=== PATIENT | female | born 1945 | race Caucasian/White ===

== ENCOUNTER 2016-08-11 03:17 | Emergency (ER) | payer MEDICARE, BC ==
[2008-08-19 14:57] VITALS: BP 109/77
[~2016-08-11] VITALS: Ht 170.2 cm; Wt 72.3 kg
[~2016-08-11 03:17] MED LIST: AFLEXA340 MG PO; AMIODARONE200 MG PO; ASPIRIN 32325 MG/TAB PO; ASPIRIN E.C.325 MG PO; BETAPACE 80MG80 MG PO; BYSTOLIC10 MG PO; BYSTOLIC5 MG PO; CALTRATE 600 +1 TAB PO; CARDI-OMEGA1000 MG PO; CARDIZEM CD 18180 MG PO; CLOPIDOGREL PO; CO Q-1010 MG PO; CORDARONE200 MG PO; COUMADIN PO; COUMADIN1 MG PO; COUMADIN6 MG PO; CRESTOR 10MG10 MG PO; CRESTOR20 MG PO; DOXYCYCLINE100 M2 PO; FORTAMET500 MG PO; GLUCOPHAGE1000 MG PO; GLUCOSAMINE & C1 CA1 PO; IMDUR 30MG30 MG/TAB PO; LISINOPRIL10 MG PO; LISINOPRIL5 MG PO; MACROBID 1100 MG/CAP PO; MASON NATURAL500 MG PO; METFORMIN500 MG PO; METOPROLOL SUCC25 MG PO; NIASPAN 500MG500 MG PO; NIASPAN500 MG PO; NITROSTAT0.4 MG/TAB SL; NORCO 325 MG-51 TAB PO; NORCO 325 MG-7.1 TAB PO; PLAVIX 75MG TAB75 MG PO; PREDNISONE20 MG PO; PRINIVIL10 MG PO; RANEXA 500MG T500 MG PO; SINGULAIR 110 MG/TAB PO; SINGULAIR10 MG PO; STOOL SOFTENER100 MG PO; VITAMIN C500 MG PO; VITAMIN D1000 IU PO; VITAMIN D50000 I1 PO; VITAMIN D50000 I2 PO; ZESTRIL 10MG10 MG PO; ZITHROMAX500 M2 PO; ZOCOR80 MG PO; ZOFRAN ODT4 MG PO; [UNRECOGNIZED DRUG - OTHER] PO; diabetic med
[2016-08-11 03:18] VITALS: TEMP 97.2
[2016-08-11] MEDS ORDERED: IMDUR 60MG60 MG/TAB (03:35)
[2016-08-11] MEDS ORDERED: PREDNISONE20 MG PO (03:35)
[2016-08-11] MEDS ORDERED: MONODOX100 PO (03:35)
[2016-08-11 03:53] LABS: BASO % 0.1 % (0.0-2.0); EOS % 0.4 % (0-4.0); GRAN # 4.7 (1.4-6.5); GRAN % 60.7 % (42.2-75.2); HEMATOCRIT 41.9 % (37.0-47.0); HEMOGLOBIN 14.6 g/dl (12.5-16.0); LYMPH # 2.5 (1.2-3.4); LYMPH % 32.5 % (20.0-51.0); MEAN CELL VOLUME 93 fl (80.0-100.0); MEAN CORPUSCULAR HEMOGLOBIN 32 pg (27.0-31.0); MEAN CORPUSCULAR HGB CONC 35 g/dl (33.0-37.0); MEAN PLATELET VOLUME 10.7 fl (7.4-10.4); MONO # 0.5 (0.1-0.6); MONO % 6.2 % (1.7-9.3); PLATELET COUNT 205 K/mm3 (130-400); RED BLOOD COUNT 4.52 M/mm3 (4.10-5.30); REDCELL DISTRIBUTION WIDTH-CV 12.7 % (11.5-14.5); WHITE BLOOD COUNT 7.7 K/mm3 (4.8-10.8)
[2016-08-11 04:03] LABS: ADJUSTED CALCIUM 9.7 mg/dL (8.4-10.2); ALANINE AMINOTRANSFERASE 39 U/L (9-52); ALBUMIN 3.9 gm/dL (3.5-5.0); ALKALINE PHOSPHATASE 136 U/L (50-136); ANION GAP 13 mmol/L (7-16); BILIRUBIN,TOTAL 0.7 mg/dL (0.0-1.0); BLOOD UREA NITROGEN 20 mg/dL (7-17); CALCIUM 9.6 mg/dL (8.4-10.2); CARBON DIOXIDE 21 mmol/L (22-30); CHLORIDE 104 mmol/L (98-107); CREATININE, serum 0.92 mg/dL (0.52-1.25); GLUCOSE 100 mg/dL (74-106); POTASSIUM 4.4 mmol/L (3.4-5.0); SODIUM 138 mmol/L (137-145); TOTAL PROTEIN 6.9 gm/dL (6.4-8.2)
[2016-08-11 04:12] LABS: INFLUENZA B NEGATIVE
[2016-08-11 04:14] LABS: B-TYPE NATRIURETIC PEPTIDE 665 pg/mL (0-125)
[2016-08-11 04:17] LABS: TROPONIN-I < 0.012 ng/mL (0.000-0.034)
[2016-08-11 04:41] VITALS: BP 124/80; PULSE 85
[2016-08-11] MEDS ORDERED: IPRATROPIUM BROM3 M1 IH (04:46)
[2016-08-11] MEDS ORDERED: NORCO 325 MG-51 TAB PO (04:46)
== END 2016-08-11 04:58 | disposition home or self-care (01) ==
LOC: COL.ER 03:17
PROVIDERS: Emergency Medicine
DX: J20.9 Acute bronchitis, unspecified (principal); I10 Essential (primary) hypertension; I25.10 Atherosclerotic heart disease of native coronary artery without angina pectoris

== ENCOUNTER 2016-08-27 14:47 | Emergency (ER) | payer MEDICARE, BC ==
[2008-08-19 14:57] VITALS: BP 109/77
[~2016-08-27] VITALS: Ht 170.2 cm; Wt 72.3 kg
[~2016-08-27 14:47] MED LIST changes: +IMDUR 60MG60 MG/TAB; +IPRATROPIUM BROM3 M1 IH; +MONODOX100 PO
[2016-08-27 15:00] VITALS: TEMP 98
[2016-08-27 16:54] VITALS: BP 97/60; PULSE 77
== END 2016-08-27 16:55 | disposition home or self-care (01) ==
LOC: COL.ER 14:47
DX: K59.00 Constipation, unspecified (principal); E11.9 Type 2 diabetes mellitus without complications; I25.10 Atherosclerotic heart disease of native coronary artery without angina pectoris; Z95.5 Presence of coronary angioplasty implant and graft

== ENCOUNTER 2017-07-06 07:25 | Emergency (ER) | payer MEDICARE, BC ==
[2008-08-19 14:57] VITALS: BP 109/77
[~2017-07-06] VITALS: Ht 167.6 cm; Wt 72.7 kg
[2017-07-06 07:28] VITALS: TEMP 97.5
[2017-07-06 08:23] LABS: BASO % 0.6 % (0.0-2.0); EOS % 0.8 % (0-4.0); GRAN # 2.7 (1.4-6.5); HEMOGLOBIN 13.9 g/dl (12.5-16.0); LYMPH # 1.9 (1.2-3.4); LYMPH % 38.4 % (20.0-51.0); MEAN CELL VOLUME 95 fl (80.0-100.0); MEAN CORPUSCULAR HEMOGLOBIN 32 pg (27.0-31.0); MEAN CORPUSCULAR HGB CONC 34 g/dl (33.0-37.0); MEAN PLATELET VOLUME 10.6 fl (7.4-10.4); MONO # 0.2 (0.1-0.6); MONO % 4.8 % (1.7-9.3); PLATELET COUNT 189 K/mm3 (130-400); RED BLOOD COUNT 4.32 M/mm3 (4.10-5.30); REDCELL DISTRIBUTION WIDTH-CV 12.5 % (11.5-14.5)
[2017-07-06 08:33] LABS: ALBUMIN 3.8 gm/dL (3.5-5.0); BILIRUBIN,TOTAL 0.5 mg/dL (0.0-1.0); CALCIUM 9.5 mg/dL (8.4-10.2); CREATININE, serum 0.78 mg/dL (0.52-1.25); POTASSIUM 4.2 mmol/L (3.4-5.0); TOTAL PROTEIN 6.5 gm/dL (6.4-8.2)
[2017-07-06 08:46] LABS: TROPONIN-I 0.02 ng/mL (0.000-0.034)
[2017-07-06 09:40] VITALS: BP 132/70; PULSE 65
== END 2017-07-06 09:40 | disposition home or self-care (01) ==
LOC: COL.ER 07:25
PROVIDERS: Emergency Medicine
DX: R10.30 Lower abdominal pain, unspecified (principal); E11.9 Type 2 diabetes mellitus without complications; I10 Essential (primary) hypertension; I48.91 Unspecified atrial fibrillation; I25.10 Atherosclerotic heart disease of native coronary artery without angina pectoris; K59.09 Other constipation; E78.5 Hyperlipidemia, unspecified; F17.210 Nicotine dependence, cigarettes, uncomplicated; Z86.73 Personal history of transient ischemic attack (TIA), and cerebral infarction without residual deficits; Z87.11 Personal history of peptic ulcer disease; J44.9 Chronic obstructive pulmonary disease, unspecified; Z90.710 Acquired absence of both cervix and uterus; Z90.49 Acquired absence of other specified parts of digestive tract; Z95.5 Presence of coronary angioplasty implant and graft; Z98.890 Other specified postprocedural states

== ENCOUNTER 2017-11-16 19:23 | Emergency (ER) | payer MEDICARE, BC ==
[2008-08-19 14:57] VITALS: BP 109/77
[~2017-11-16] VITALS: Ht 165.1 cm; Wt 74.5 kg
[~2017-11-16 19:23] MED LIST changes: -IMDUR 60MG60 MG/TAB; +IMDUR 60MG60 MG/TAB PO
[2017-11-16 19:29] VITALS: TEMP 97.9
[2017-11-16 19:50] LABS: BASO % 0.3 % (0.0-2.0); EOS % 0.6 % (0-4.0); GRAN # 3.1 (1.4-6.5); GRAN % 46.7 % (42.2-75.2); HEMATOCRIT 41.9 % (37.0-47.0); HEMOGLOBIN 14.5 g/dl (12.5-16.0); LYMPH # 3.1 (1.2-3.4); LYMPH % 46.6 % (20.0-51.0); MEAN CELL VOLUME 94 fl (80.0-100.0); MEAN CORPUSCULAR HEMOGLOBIN 33 pg (27.0-31.0); MEAN CORPUSCULAR HGB CONC 35 g/dl (33.0-37.0); MEAN PLATELET VOLUME 10.7 fl (7.4-10.4); MONO # 0.4 (0.1-0.6); MONO % 5.7 % (1.7-9.3); PLATELET COUNT 211 K/mm3 (130-400); RED BLOOD COUNT 4.45 M/mm3 (4.10-5.30); REDCELL DISTRIBUTION WIDTH-CV 12.4 % (11.5-14.5)
[2017-11-16] MEDS ORDERED: COREG 6.256.25 MG/TA PO (19:53)
[2017-11-16] MEDS ORDERED: MASON NATURAL2000 IU PO (19:54)
[2017-11-16] MEDS ORDERED: ASPIRIN 81M81 MG/TA2 PO (19:54)
[2017-11-16] MEDS ORDERED: XANAX 0.5MG0.5 MG PO (19:55)
[2017-11-16 19:59] LABS: ALBUMIN 3.8 gm/dL (3.5-5.0); BILIRUBIN,TOTAL 0.5 mg/dL (0.0-1.0); CALCIUM 9.6 mg/dL (8.4-10.2); CREATININE, serum 0.66 mg/dL (0.52-1.25); POTASSIUM 4.3 mmol/L (3.4-5.0); TOTAL PROTEIN 6.9 gm/dL (6.4-8.2)
[2017-11-16 20:17] LABS: TROPONIN-I 0.079 ng/mL (0.000-0.034)
[2017-11-16 21:52] VITALS: BP 148/73; PULSE 67
== END 2017-11-16 21:56 | disposition short-term general hospital (02) ==
LOC: COL.ER 19:23
PROVIDERS: Emergency Medicine
DX: I20.0 Unstable angina (principal); I10 Essential (primary) hypertension; E78.5 Hyperlipidemia, unspecified; Z95.5 Presence of coronary angioplasty implant and graft; Z98.890 Other specified postprocedural states; Z79.82 Long term (current) use of aspirin
CPT/HCPCS: J1644; J7030

== ENCOUNTER 2021-04-06 02:35 | Inpatient (IN) | payer MEDICARE, BC ==
[2021-04-06] VITALS (73 sets, daily range): BP systolic 86–189; BP diastolic 57–125; PULSE 57–137; TEMP 96.9–98.5; O2SAT 86–99
[~2021-04-06] VITALS: Ht 172.7 cm; Wt 66.2 kg
[~2021-04-06 02:35] MED LIST changes: +ASPIRIN 81M81 MG/TA2 PO; +COREG 6.256.25 MG/TA PO; +MASON NATURAL2000 IU PO; +XANAX 0.5MG0.5 MG PO
[2021-04-06 02:53] LABS: BASO % 0.4 % (0.0-2.0); EOS # 0.1 K/mm3 (0.0-0.7); EOS % 0.7 % (0-4.0); GRAN # 4.1 K/mm3 (1.4-6.5); GRAN % 58.8 % (42.2-75.2); HEMOGLOBIN 12.1 g/dl (12.5-16.0); LYMPH # 2.4 K/mm3 (1.2-3.4); LYMPH % 34.9 % (20.0-51.0); MEAN CELL VOLUME 99 fl (80.0-100.0); MEAN CORPUSCULAR HEMOGLOBIN 32 pg (27.0-31.0); MEAN CORPUSCULAR HGB CONC 33 g/dl (33.0-37.0); MEAN PLATELET VOLUME 10.3 fl (7.4-10.4); MONO # 0.4 K/mm3 (0.1-0.6); MONO % 5.1 % (1.7-9.3); PLATELET COUNT 232 K/mm3 (130-400); RED BLOOD COUNT 3.73 M/mm3 (4.10-5.30); REDCELL DISTRIBUTION WIDTH-CV 12.1 % (11.5-14.5)
[2021-04-06 03:01] LABS: PROTHROMBIN TIME 11.4 SECONDS (9.7-12.8)
[2021-04-06 03:13] LABS: ALBUMIN 3.4 gm/dL (3.4-4.8); BILIRUBIN,TOTAL 0.3 mg/dL (0.2-1.2); CALCIUM 9.7 mg/dL (8.4-10.2); CREATININE, serum 0.61 mg/dL (0.57-1.11); POTASSIUM 4.1 mmol/L (3.5-4.5); TOTAL PROTEIN 6.2 gm/dL (6.2-8.1)
[2021-04-06 03:20] LABS: TROPONIN-I 0.98 ng/mL (0.00-0.033)
[2021-04-06] MEDS ORDERED: GLUCOPHAGE1000 MG PO ×2 (03:41→08:14)
[2021-04-06] MEDS ORDERED: ISOSORBIDE MON120 MG PO (03:43)
--- NOTE | 2021-04-06 05:35 | NUR ---
0535 PATIENT ARRIVES FROM ER, SWEATY/ SHORT OF BREATH LABORED/ ANXIOUS/ CALLED HOSPITALSIT TO ROOM 3 ICU/ ORDERS OF SOLUMEDEROL/LASIX/ATIVAN/ CXR/ ABG/ LAB BLOOD CULTURES/ ALEX APPLIED. AT 0640 PATIENT BEGINS TO SLOW HEART RATE, AND LOWERING OF B/P.
--- NOTE | 2021-04-06 07:00 | NUR ---
Upon arrival heparin gtt had already been infusing prior to Heparin Xa lab draw.
[2021-04-06 07:35] LABS: COLLECTION METHOD CLEAN CATCH
[2021-04-06 08:02] LABS: MUCOUS Present /lpf; PH 5 (5-8); SQUAMOUS EPITHELIAL None Seen /hpf; URINE APPEARANCE Hazy; URINE BACTERIA Moderate /hpf; URINE BILIRUBIN Negative (NEGATIVE); URINE BLOOD Negative (NEGATIVE); URINE COLOR Yellow; URINE GLUCOSE Negative (NEGATIVE); URINE KETONE Negative (NEGATIVE); URINE LEUKOCYTE ESTERASE 1+ (NEGATIVE); URINE NITRATE Negative (NEGATIVE); URINE PROTEIN(semi-quant) Negative (NEGATIVE); URINE RBC 0-2 /hpf; URINE UROBILINOGEN Negative (NEGATIVE)
[2021-04-06] MEDS ORDERED: IMDUR 60MG60 MG/TAB PO (08:14)
[2021-04-06] MEDS ORDERED: COREG 6.256.25 MG/TA PO (08:14)
[2021-04-06] MEDS ORDERED: NORVASC 5MG5 MG/TAB PO (08:16)
[2021-04-06] MEDS ORDERED: ASPIRIN 81M81 MG/TA2 PO (08:16)
[2021-04-06] MEDS ORDERED: SINGULAIR 110 MG/TAB PO (08:16)
[2021-04-06] MEDS ORDERED: CRESTOR20 MG PO (08:17)
[2021-04-06] MEDS ORDERED: OMEGA-3 1000 MG1 CAP PO (08:17)
[2021-04-06] MEDS ORDERED: MASON NATURAL2000 IU PO (08:17)
[2021-04-06] MEDS ORDERED: THE MEDICINE S200 M2 PO (08:18)
--- NOTE | 2021-04-06 08:30 | NUR ---
0830: Timeout taken for MORRIS DCCV. GLENN Eaton, MD Jaison, Supervisor [employer] and myself all in agreement. MORRIS probe inserted and removed without difficulty. 125J delivered x1 with successful conversion to sinus rhythm/sinus bradycardia 1045: procedure end time. Pt drowsy yet awake and oriented
--- NOTE | 2021-04-06 10:29 | NUR ---
SW met with patient at bedside to discuss her discharge plan. Patient states she is and she lives alone in [place] (behind the retirement). Her primary contact is her daughter is Queta Patel at [phone]. Patient reports she sees Dr. Jatin Sullivan at [facility] as her PCP and she receives her prescriptions from [facility] in [place] with no difficulty. Patient has no 02 needs. Patient functions independently with her ADLs and has no DME's. Patient further reports that she has an MPOA and all three of her children are listed as agents. She states it is on file at [facility]. SW will continue to follow for d/c needs.
[2021-04-06 10:36] LABS: CHOLESTEROL RISK RATIO 3.8; MAGNESIUM 1.7 mg/dL (1.6-2.6)
[2021-04-06 10:47] LABS: TROPONIN-I 6 HR POST INITIAL 1.103 ng/mL (0.00-0.033)
--- NOTE | 2021-04-06 12:27 | NUR ---
SEE MERGE FOR MEDICATION ADMINISTRATION TIMES/DOSAGES AND INTRA/POST SEDATION ASSESSMENT.
--- NOTE | 2021-04-06 15:10 | NUR ---
2mL slowly removed from TR-Band - a small amount of blood oozed out of sheath insertion site - 2mL of air given back and observed for 5 min. No further drainage occured. Education provided to pt and daughter who is bedide about TRBand and Heparin gtt
--- NOTE | 2021-04-06 19:30 | NUR ---
PATIENT ADIMENT ABOUT BEING UP ON COMMODE CHAIR/ GIVEN VERB AL WARNING ABOUT STATE OF HEALTH/ PATIENT UNDERSTANDING HOWEVER STILL NEEDED TO BE UP/ PATIENT'S PULSE, B/P, ELEVATED. SATS FALLEN INSPIRATORY EXPORATORY WHEESES CAN BE HEARD EASILY/ PATIENT BACK IN BED/ BREATHING TX GIVEN PULSE AND B/P ARE STILL ELEVATED SOME 90 MINUTES LATER/ SATS AND RESPIRATIONS RECOVERYING
[2021-04-07] VITALS (8 sets, daily range): BP systolic 125–153; BP diastolic 56–95; PULSE 69–83; TEMP 97.3–98
[2021-04-07 04:38] LABS: BASO % 0.1 % (0.0-2.0); GRAN # 9.6 K/mm3 (1.4-6.5); GRAN % 87.9 % (42.2-75.2); HEMATOCRIT 37.3 % (37.0-47.0); HEMOGLOBIN 12.5 g/dl (12.5-16.0); LYMPH % 8.9 % (20.0-51.0); MEAN CELL VOLUME 97 fl (80.0-100.0); MEAN CORPUSCULAR HEMOGLOBIN 33 pg (27.0-31.0); MEAN CORPUSCULAR HGB CONC 34 g/dl (33.0-37.0); MEAN PLATELET VOLUME 10.8 fl (7.4-10.4); MONO # 0.3 K/mm3 (0.1-0.6); MONO % 2.7 % (1.7-9.3); PLATELET COUNT 242 K/mm3 (130-400); RED BLOOD COUNT 3.84 M/mm3 (4.10-5.30); REDCELL DISTRIBUTION WIDTH-CV 12.4 % (11.5-14.5)
[2021-04-07 04:58] LABS: CALCIUM 9.1 mg/dL (8.4-10.2); CREATININE, serum 0.58 mg/dL (0.57-1.11)
--- NOTE | 2021-04-07 05:53 | NUR ---
[id number] TRANSPORTED TO MEDICAL ROOM 318/ NURSE SWAPNA WILL ACCEPT CARE, NURSES REPORT GIVEN
--- NOTE | 2021-04-07 06:30 | NUR ---
PT ARRIVES TO MEDICAL FLOOR ROOM 318 BY ICU STAFF AND UNDERCUTTER AT 0600 VIA BED AND TRANSPORTED BY SCOOTING. PT VERY DYSPNEIC ON AMBULATION. PT A/OX4, 02 3L NC, PT DENIES PAIN,N,V,D. VSS. HEP GTT INFUSING AT 1050U/HR, (NEXT HEPXA 04/08/21 0500 INPUT PT HAS MET GOAL TWICE WHILE IN ICU CARE), N/S INFUSING Y SITE AT 30CC/HR TO RIGHT UPPER PICC. PICC C&P. ASSESMENT COMPLETE. MED REC COMPLETE. POC DISCUSSED WITH PT. PT VERBALIZES UNDERSTANDING. PT ORIENTED TO ROOM, HOSPITAL POLICY TO INCLUDE VISITOR POLICY. ALL QUESTIONS/CONCERNS ANSWERED. ALL NEEDS MET AT THIS TIME. PT EXPRESSES NO ADDITIONAL NEEDS AT THIS TIME. CALL LIGHT WITHIN REACH.
--- NOTE | 2021-04-07 07:19 | NUR ---
RECEIVED REPORT FROM ANIL ANDERS. PT AWAKE/ALERT WATCHING TV. DENIES PAIN. NO NEEDS AT THIS TIME. CALL KAY IN REACH
--- NOTE | 2021-04-07 11:58 | NUR ---
PT ALEX D/C'D. PT VOIDED IMMEDIATELY AFTER
--- NOTE | 2021-04-07 17:46 | NUR ---
PT HAD UNEVENTFUL SHIFT. PLAN FOR HEPARIN DRIP TO BE CHANGED TO ELIQUIS. WAITING FOR ORDERS. DENIES PAIN. NO NEEDS AT THIS TIME. CALL KAY IN REACH
--- NOTE | 2021-04-07 18:31 | NUR ---
HEPARIN DRIP D/C'D PER ORDER
[2021-04-08 02:28] VITALS: BP 136/64; PULSE 62; TEMP 97.2
--- NOTE | 2021-04-08 06:20 | NUR ---
PT HAD UNEVENTFUL NIGHT. 02 3L NC. VSS. PT DENIES CHEST PAIN,N,V,D. PT STATES SHE FEELS MUCH BETTER AND IS ABLE TO AMBULATE SBA WITH NO 02 DESATS. PT REMAINS IN NORMAL SINUS RYTHM. PT REMAINS WITH A MILD PRODUCTIVE COUGH. ALL NEEDS MET THIS NIGHT. CALL LIGHT WITHIN REACH.
[2021-04-08 06:37] LABS: GRAN # 6.5 K/mm3 (1.4-6.5); GRAN % 85.2 % (42.2-75.2); HEMOGLOBIN 11.5 g/dl (12.5-16.0); LYMPH # 0.8 K/mm3 (1.2-3.4); LYMPH % 10.5 % (20.0-51.0); MEAN CELL VOLUME 101 fl (80.0-100.0); MEAN CORPUSCULAR HEMOGLOBIN 33 pg (27.0-31.0); MEAN CORPUSCULAR HGB CONC 32 g/dl (33.0-37.0); MEAN PLATELET VOLUME 11.4 fl (7.4-10.4); MONO # 0.3 K/mm3 (0.1-0.6); MONO % 3.9 % (1.7-9.3); PLATELET COUNT 218 K/mm3 (130-400); RED BLOOD COUNT 3.53 M/mm3 (4.10-5.30); REDCELL DISTRIBUTION WIDTH-CV 12.7 % (11.5-14.5)
[2021-04-08 06:42] LABS: HEMATOCRIT 35.6 % (37.0-47.0)
[2021-04-08 06:54] LABS: ALBUMIN 3.1 gm/dL (3.4-4.8); CALCIUM 9.4 mg/dL (8.4-10.2); CREATININE, serum 0.56 mg/dL (0.57-1.11); PHOSPHOROUS 2.6 mg/dL (2.3-4.7); POTASSIUM 4.3 mmol/L (3.5-4.5)
--- NOTE | 2021-04-08 06:56 | NUR ---
REPORT RECEIVED FROM ANIL ANDERS. PT ASLEEP IN BED. BREATHING REG/UNLABORED. CALL KAY IN REACH
[2021-04-08 07:45] VITALS: BP 149/75; PULSE 65; TEMP 97.7
[2021-04-08] MEDS ORDERED: CORDARONE200 MG/TAB PO (10:11)
[2021-04-08] MEDS ORDERED: ELIQUIS 5MG PO (10:11)
[2021-04-08] MEDS ORDERED: ZESTRIL 5MG5 MG PO (10:13)
[2021-04-08] MEDS ORDERED: PREDNISONE10 MG PO (10:14)
[2021-04-08] MEDS ORDERED: NORVASC 5MG5 MG/TAB PO (10:20)
[2021-04-08] MEDS ORDERED: LASIX 40MG TABL40 MG PO (10:26)
--- NOTE | 2021-04-08 12:08 | NUR ---
DISCHARGE INSTRUCTIONS REVIEWED WITH PT. QUESTIONS INVITED AND ANSWERED. PICC LINE AND TELE REMOVED.
[2021-04-10 09:01] LABS: ARTERIAL BLD GAS O2 SATURATION 93.1 % (92-100); ARTERIAL BLD GAS TCO2 CT 18.6; ARTERIAL BLOOD GAS BASE EXCESS -10.6 (-2-2); ARTERIAL BLOOD GAS HCO3 17.2 meq/L (22-26); ARTERIAL BLOOD GAS PCO2 45.1 mmHg (35-45); ARTERIAL BLOOD GAS PO2 80.7 mmHg (80-100)
[2021-04-10 09:04] LABS: ARTERIAL BLOOD GAS pH 7.31 (7.35-7.45)
[2021-04-10 09:05] LABS: ARTERIAL BLD GAS TCO2 CT 19.9; ARTERIAL BLOOD GAS BASE EXCESS -6.9 (-2-2); ARTERIAL BLOOD GAS HCO3 18.7 meq/L (22-26); ARTERIAL BLOOD GAS PCO2 37.8 mmHg (35-45); ARTERIAL BLOOD GAS PO2 71.8 mmHg (80-100)
== END 2021-04-08 12:35 | disposition home or self-care (01) | DRG 280 ==
LOC: COL.ER 02:35 → ICU 05:05 → MEDICAL 04-07 05:51
PROVIDERS: Emergency Medicine; Nurse Practitioner Family; Student in an Organized Health Care Education/Training Program; ADMIT Internal Medicine
PROC: 4A023N7 Measurement of Cardiac Sampling and Pressure, Left Heart, Percutaneous Approach (ICD-10-PCS; principal; 2021-04-06)
PROC: B2111ZZ Fluoroscopy of Multiple Coronary Arteries using Low Osmolar Contrast (ICD-10-PCS; 2021-04-06)
PROC: 5A2204Z Restoration of Cardiac Rhythm, Single (ICD-10-PCS; 2021-04-06)
PROC: 05HY33Z Insertion of Infusion Device into Upper Vein, Percutaneous Approach (ICD-10-PCS; 2021-04-06)
PROC: 5A09357 Assistance with Respiratory Ventilation, Less than 24 Consecutive Hours, Continuous Positive Airway Pressure (ICD-10-PCS; 2021-04-06)
DX: I21.4 Non-ST elevation (NSTEMI) myocardial infarction (principal); J96.01 Acute respiratory failure with hypoxia; J18.9 Pneumonia, unspecified organism; I48.92 Unspecified atrial flutter; E87.2 Acidosis; I50.20 Unspecified systolic (congestive) heart failure; I25.10 Atherosclerotic heart disease of native coronary artery without angina pectoris; Z86.73 Personal history of transient ischemic attack (TIA), and cerebral infarction without residual deficits; Z95.5 Presence of coronary angioplasty implant and graft; Z95.1 Presence of aortocoronary bypass graft; J45.909 Unspecified asthma, uncomplicated; E78.5 Hyperlipidemia, unspecified; Z90.49 Acquired absence of other specified parts of digestive tract; Z90.710 Acquired absence of both cervix and uterus; Z90.721 Acquired absence of ovaries, unilateral; Z79.84 Long term (current) use of oral hypoglycemic drugs; Z79.82 Long term (current) use of aspirin; J44.9 Chronic obstructive pulmonary disease, unspecified; D64.9 Anemia, unspecified; Z66 Do not resuscitate; E11.51 Type 2 diabetes mellitus with diabetic peripheral angiopathy without gangrene; I48.0 Paroxysmal atrial fibrillation; F17.210 Nicotine dependence, cigarettes, uncomplicated; I11.0 Hypertensive heart disease with heart failure
CPT/HCPCS: 99223-AI; 99233-AI; 99239; C1751; C1769; C1892; J0282; J0696; J1644; J1940; J2060; J2250; J2543; J2920; J2930; J3010; J3370; J7030; J7050; J7060; Q9967

== ENCOUNTER 2021-04-08 23:30 | Emergency (ER) | payer MEDICARE, BC ==
[~2021-04-08] VITALS: Ht 170.2 cm; Wt 65.5 kg
[~2021-04-08 23:30] MED LIST changes: +CORDARONE200 MG/TAB PO; +ELIQUIS 5MG PO; +ISOSORBIDE MON120 MG PO; +LASIX 40MG TABL40 MG PO; +NORVASC 5MG5 MG/TAB PO; +OMEGA-3 1000 MG1 CAP PO; +PREDNISONE10 MG PO; +THE MEDICINE S200 M2 PO; +ZESTRIL 5MG5 MG PO
[2021-04-09 00:17] VITALS: BP 117/86; PULSE 57; TEMP 98.3
== END 2021-04-09 00:17 | disposition home or self-care (01) ==
LOC: COL.ER 23:30
DX: L76.22 Postprocedural hemorrhage of skin and subcutaneous tissue following other procedure (principal); I25.10 Atherosclerotic heart disease of native coronary artery without angina pectoris; Z86.73 Personal history of transient ischemic attack (TIA), and cerebral infarction without residual deficits; Z79.01 Long term (current) use of anticoagulants; Z79.82 Long term (current) use of aspirin

== ENCOUNTER 2021-12-19 13:51 | Observation (INO) | payer MEDICARE, BC ==
[~2021-12-19] VITALS: Ht 167.7 cm; Wt 62.3 kg
[2021-12-19 14:22] LABS: PROTHROMBIN TIME 11.8 SECONDS (9.7-12.8)
[2021-12-19 14:25] LABS: BASO % 0.4 % (0.0-2.0); EOS % 0.4 % (0.0-4.0); GRAN # 3.1 K/mm3 (1.4-6.5); GRAN % 56.5 % (42.2-75.2); HEMOGLOBIN 11.2 g/dl (12.5-16.0); LYMPH % 36.7 % (20.0-51.0); MEAN CELL VOLUME 95 fl (80.0-100.0); MEAN CORPUSCULAR HEMOGLOBIN 32 pg (27-31); MEAN CORPUSCULAR HGB CONC 34 g/dl (33.0-37.0); MEAN PLATELET VOLUME 10.8 fl (7.4-10.4); MONO # 0.3 K/mm3 (0.1-0.6); MONO % 5.8 % (1.7-9.3); PARTIAL THROMBOPLASTIN TIME 30.9 SECONDS (26.0-37.0); PLATELET COUNT 219 K/mm3 (130-400); RED BLOOD COUNT 3.51 M/mm3 (4.10-5.30); REDCELL DISTRIBUTION WIDTH-CV 12.7 % (11.5-14.5)
[2021-12-19 14:28] LABS: HEMATOCRIT 33.3 % (37.0-47.0)
[2021-12-19 14:30] LABS: ALBUMIN 3.3 gm/dL (3.4-4.8); ALKALINE PHOSPHATASE 60 U/L (40-150); ANION GAP 13 mmol/L (7-16); AST,SGOT 7 U/L (5-34); BILIRUBIN,TOTAL 0.3 mg/dL (0.2-1.2); BLOOD UREA NITROGEN 11 mg/dL (10-20); CARBON DIOXIDE 19 mmol/L (23-31); CHLORIDE 110 mmol/L (98-107); GLUCOSE 82 mg/dL (70-99); LIPASE 31 U/L (8-78); POTASSIUM 3.8 mmol/L (3.5-4.5); SODIUM 142 mmol/L (136-145); TOTAL PROTEIN 5.6 gm/dL (6.2-8.1)
[2021-12-19 14:32] LABS: ALANINE AMINOTRANSFERASE < 6 U/L (0-55)
[2021-12-19 14:38] LABS: TROPONIN-I < 0.010 ng/mL (0.00-0.033)
[2021-12-19 17:30] VITALS: BP 138/61; PULSE 72; TEMP 97.9
[2021-12-19] MEDS ORDERED: MAGNESIUM ELEME30 MG PO (18:24)
--- NOTE | 2021-12-19 19:02 | NUR ---
Patient is having dinner right now, feeling cold, increased temp in room and warm blanket provided. 1 dose of potassium given. Denies pain at thi time. Report given to night RN.
[2021-12-19 21:03] VITALS: BP 127/45; PULSE 80; TEMP 98.2
[2021-12-20] VITALS (11 sets, daily range): BP systolic 112–154; BP diastolic 54–90; PULSE 60–89; TEMP 97.6–98.1
[2021-12-20 07:43] LABS: BASO % 0.4 % (0.0-2.0); EOS % 0.7 % (0.0-4.0); GRAN # 2.9 K/mm3 (1.4-6.5); GRAN % 53.7 % (42.2-75.2); HEMOGLOBIN 12.6 g/dl (12.5-16.0); LYMPH # 2.1 K/mm3 (1.2-3.4); LYMPH % 39.3 % (20.0-51.0); MEAN CELL VOLUME 93 fl (80.0-100.0); MEAN CORPUSCULAR HEMOGLOBIN 32 pg (27-31); MEAN CORPUSCULAR HGB CONC 34 g/dl (33.0-37.0); MEAN PLATELET VOLUME 10.8 fl (7.4-10.4); MONO # 0.3 K/mm3 (0.1-0.6); MONO % 5.7 % (1.7-9.3); PLATELET COUNT 231 K/mm3 (130-400); RED BLOOD COUNT 3.96 M/mm3 (4.10-5.30); REDCELL DISTRIBUTION WIDTH-CV 12.7 % (11.5-14.5)
[2021-12-20 08:09] LABS: ALBUMIN 3.5 gm/dL (3.4-4.8); CALCIUM 9.5 mg/dL (8.4-10.2); CREATININE, serum 0.62 mg/dL (0.57-1.11); MAGNESIUM 1.5 mg/dL (1.6-2.6); POTASSIUM 4.4 mmol/L (3.5-4.5)
--- NOTE | 2021-12-20 09:44 | NUR ---
Initial visit; Patient thanked Financial Institution Treasurer for looking in on her and offering encouragement and God's blessings. Financial Institution Treasurer will keep Renita in her prayers.
[2021-12-20] MEDS ORDERED: ZESTRIL 5MG5 MG PO (10:04)
--- NOTE | 2021-12-20 10:25 | NUR ---
PT RESTING IN BED. MORNING MEDICATIONS GIVEN. SHIFT ASSESSMENT COMPLETED. PT DENIES ANY PAIN OR NEEDS THIS AM. EAGER FOR D/C. WILL CONTINUE TO MONITOR.
--- NOTE | 2021-12-20 10:25 | NUR ---
Follow-up visit; Patient had nurse call Change Consultant for a follow-up visit; Honey wanted to read a letter to Change Consultant from he Grand-daughter and talk about her family and friends who have and new friends she has made where she lives. Change Consultant listened and assured Honey she would continue to visit so she could keep Change Consultant posted on her progress.
--- NOTE | 2021-12-20 13:33 | NUR ---
SW met with the patient to discuss discharge plan. The patient lives alone in [place], behind the long term. She states that her June 07. She reports independence with ADLs and does not have any DME. The patient's PCP is Dr. Jatin Sullivan and she receives her medications from [facility]. The patient does not have a DPOA-HC in EMR, but she states that she does have one completed and that it designates her three children. She states that she has three children in all: Queta ([place], ph#[phone]), Obi Argueta ([place]), and Hank Argueta ([place]). The patient plans to return home upon discharge. PT is recommending home. No additional needs at this time. *Discharge plan: home*
[2021-12-21 00:18] VITALS: BP 136/61; PULSE 62; TEMP 98.1
[2021-12-21 03:47] VITALS: BP 124/52; PULSE 77; TEMP 97.6
--- NOTE | 2021-12-21 05:15 | NUR ---
PT UPSET AT THE BEGINNING OF SHIFT BECAUSE SHE FELT THE DRChente ONLY TALKED TO HER DAUGHTER ABOUT HER HEART CONDITION. COREMAKER FLOOR CALLED AND SPOKE DIRECTLY WITH PT. PT SEEMED MUCH BETTER, HAPPIER AFTER PHONE CALL. PT STATED SHE WANTED TO GO HOME FOR ABOUT A WEEK. THEN SEE HER OWN COREMAKER FLOOR FOR TREATMENT. CALL LIGHT WITHIN REACH.
[2021-12-21 06:52] LABS: BASO % 0.4 % (0.0-2.0); EOS % 0.6 % (0.0-4.0); GRAN # 2.4 K/mm3 (1.4-6.5); GRAN % 51.4 % (42.2-75.2); HEMATOCRIT 38.3 % (37.0-47.0); HEMOGLOBIN 12.9 g/dl (12.5-16.0); LYMPH % 42.5 % (20.0-51.0); MEAN CELL VOLUME 95 fl (80.0-100.0); MEAN CORPUSCULAR HEMOGLOBIN 32 pg (27-31); MEAN CORPUSCULAR HGB CONC 34 g/dl (33.0-37.0); MEAN PLATELET VOLUME 10.8 fl (7.4-10.4); MONO # 0.2 K/mm3 (0.1-0.6); MONO % 4.9 % (1.7-9.3); PLATELET COUNT 223 K/mm3 (130-400); RED BLOOD COUNT 4.02 M/mm3 (4.10-5.30); REDCELL DISTRIBUTION WIDTH-CV 12.5 % (11.5-14.5)
[2021-12-21 07:10] LABS: ALBUMIN 3.6 gm/dL (3.4-4.8); CALCIUM 9.7 mg/dL (8.4-10.2); CREATININE, serum 0.62 mg/dL (0.57-1.11); MAGNESIUM 1.7 mg/dL (1.6-2.6); PHOSPHOROUS 3.8 mg/dL (2.3-4.7); POTASSIUM 4.1 mmol/L (3.5-4.5)
[2021-12-21 07:59] VITALS: BP 127/53; PULSE 66; TEMP 97.8
--- NOTE | 2021-12-21 09:36 | NUR ---
PT SITTING UP IN RECLINER. MORNING MEDICATIONS GIVEN. SHIFT ASSESSMENT COMPLETED. UPDATED PT ON POC, PT STATING SHE WOULD LIKE TO GO HOME FOR A FEW DAYS BEFORE FOLLOWING UP WITH HER NORMAL OPERATING ROOM AIDE. WILL CONTINUE TO MONITOR.
--- NOTE | 2021-12-21 09:46 | NUR ---
Follow-up visit; Patient thanked Blogs Manager for looking in on her again this morning and introduced Blogs Manager to her sister. Honey says she is probably going to be transferred to [place] and thanked Blogs Manager for keeping her in her prayers.
--- NOTE | 2021-12-21 13:13 | NUR ---
IV D/C. TELE D/C. DISCHARGE INSTRUCTIONS GIVEN, SISTER AT BEDSIDE. ALL QUESTIONS ANSWERED. PT ESCORTED DOWN TO VEHICLE WITH PERSONAL BELONGINGS. WILL D/C FROM SYSTEM.
== END 2021-12-21 13:17 | disposition home or self-care (01) ==
LOC: COL.ER 13:51 → MEDICAL 15:08
PROVIDERS: Emergency Medicine; ADMIT Internal Medicine
DX: I25.9 Chronic ischemic heart disease, unspecified (principal); I10 Essential (primary) hypertension; R42 Dizziness and giddiness; E11.9 Type 2 diabetes mellitus without complications; E83.42 Hypomagnesemia; F17.210 Nicotine dependence, cigarettes, uncomplicated; Z79.84 Long term (current) use of oral hypoglycemic drugs; Z79.82 Long term (current) use of aspirin; Z79.899 Other long term (current) drug therapy; Z95.5 Presence of coronary angioplasty implant and graft; Z95.1 Presence of aortocoronary bypass graft
CPT/HCPCS: 99233-AI; A9500; G0378; J2785; J3475

== ENCOUNTER 2024-01-08 13:31 | Emergency (ER) | payer MEDICARE, BC ==
[~2024-01-08] VITALS: Ht 165.1 cm; Wt 72.3 kg
[~2024-01-08 13:31] MED LIST changes: +ASPI325T6 PO; +COREG 3.123.125 MG/T PO; +CRESTOR40 MG PO; +MAGNESIUM ELEME30 MG PO; +NORVASC2.5 MG PO; +PACERONE200 MG PO
[2024-01-08 13:53] VITALS: TEMP 98.3
[2024-01-08 14:29] LABS: BASO % 0.5 % (0.0-2.0); EOS % 0.7 % (0.0-4.0); GRAN # 2.6 K/mm3 (1.4-6.5); GRAN % 63.2 % (42.2-75.2); HEMOGLOBIN 10.1 g/dl (12.5-16.0); LYMPH # 1.1 K/mm3 (1.2-3.4); LYMPH % 27.8 % (20.0-51.0); MEAN CELL VOLUME 88 fl (80.0-100.0); MEAN CORPUSCULAR HEMOGLOBIN 26 pg (27-31); MEAN CORPUSCULAR HGB CONC 30 g/dl (33.0-37.0); MEAN PLATELET VOLUME 9.9 fl (7.4-10.4); MONO # 0.3 K/mm3 (0.1-0.6); MONO % 7.6 % (1.7-9.3); PLATELET COUNT 234 K/mm3 (130-400); RED BLOOD COUNT 3.83 M/mm3 (4.10-5.30); REDCELL DISTRIBUTION WIDTH-CV 14.7 % (11.5-14.5)
[2024-01-08 14:35] LABS: HEMATOCRIT 33.6 % (37.0-47.0)
[2024-01-08 14:47] LABS: ALBUMIN 3.4 g/dL (3.4-4.8); BILIRUBIN,TOTAL 0.4 mg/dL (0.2-1.2); CALCIUM 9.3 mg/dL (8.4-10.2); CREATININE, serum 1.24 mg/dL (0.57-1.11); POTASSIUM 3.8 mEq/L (3.5-4.5); TOTAL PROTEIN 6.8 g/dl (6.2-8.1)
[2024-01-08 15:14] LABS: COLLECTION METHOD CLEAN CATCH
[2024-01-08 15:42] LABS: PH 6.5 (5.0-8.5); URINE APPEARANCE CLEAR (CLEAR/HAZY); URINE BLOOD NEGATIVE (NEGATIVE); URINE COLOR YELLOW (YELLOW); URINE GLUCOSE NEGATIVE (NEGATIVE); URINE KETONE NEGATIVE (NEGATIVE); URINE NITRATE NEGATIVE (NEGATIVE); URINE PROTEIN(semi-quant) NEGATIVE (NEGATIVE)
[2024-01-08 16:22] VITALS: BP 115/49; PULSE 80
== END 2024-01-08 16:22 | disposition home or self-care (01) ==
LOC: COL.ER 13:31
PROVIDERS: Physician Assistant
DX: G30.9 Alzheimer's disease, unspecified (principal); F02.80 Dementia in other diseases classified elsewhere, unspecified severity, without behavioral disturbance, psychotic disturbance, mood disturbance, and anxiety

== ENCOUNTER 2024-01-22 21:30 | Emergency (ER) | payer MEDICARE, BC ==
[~2024-01-22] VITALS: Ht 170.2 cm; Wt 72.7 kg
[2024-01-23 00:40] LABS: BASO % 0.6 % (0.0-2.0); EOS % 0.6 % (0.0-4.0); GRAN # 3.1 K/mm3 (1.4-6.5); GRAN % 61.1 % (42.2-75.2); HEMOGLOBIN 10.3 g/dl (12.5-16.0); LYMPH # 1.5 K/mm3 (1.2-3.4); LYMPH % 30.1 % (20.0-51.0); MEAN CELL VOLUME 87 fl (80.0-100.0); MEAN CORPUSCULAR HEMOGLOBIN 27 pg (27-31); MEAN CORPUSCULAR HGB CONC 31 g/dl (33.0-37.0); MEAN PLATELET VOLUME 9.8 fl (7.4-10.4); MONO # 0.4 K/mm3 (0.1-0.6); MONO % 7.4 % (1.7-9.3); PLATELET COUNT 188 K/mm3 (130-400); RED BLOOD COUNT 3.77 M/mm3 (4.10-5.30); REDCELL DISTRIBUTION WIDTH-CV 16.4 % (11.5-14.5)
[2024-01-23 00:42] LABS: HEMATOCRIT 32.8 % (37.0-47.0)
[2024-01-23 00:51] LABS: COLLECTION METHOD CATHETER
[2024-01-23 00:55] LABS: ALBUMIN 3.3 g/dL (3.4-4.8); BILIRUBIN,TOTAL 0.4 mg/dL (0.2-1.2); CALCIUM 9.3 mg/dL (8.4-10.2); CREATININE, serum 1.11 mg/dL (0.57-1.11); POTASSIUM 3.7 mEq/L (3.5-4.5); TOTAL PROTEIN 6.3 g/dl (6.2-8.1)
[2024-01-23 00:57] LABS: PH 6.5 (5.0-8.5); URINE APPEARANCE CLEAR (CLEAR/HAZY); URINE BLOOD NEGATIVE (NEGATIVE); URINE COLOR YELLOW (YELLOW); URINE GLUCOSE NEGATIVE (NEGATIVE); URINE KETONE NEGATIVE (NEGATIVE); URINE NITRATE NEGATIVE (NEGATIVE); URINE PROTEIN(semi-quant) NEGATIVE (NEGATIVE)
[2024-01-23] MEDS ORDERED: MACROBID 1100 MG/CAP PO (01:58)
[2024-01-23 02:46] VITALS: BP 131/73; PULSE 78
[2024-01-30] MEDS ORDERED: TYLENOL 325MG325 MG PO (11:53)
[2024-01-30] MEDS ORDERED: TYLENOL 500MG500 MG PO (11:54)
== END 2024-01-23 03:20 | disposition home or self-care (01) ==
LOC: COL.ER 21:30
PROVIDERS: Emergency Medicine
DX: R41.82 Altered mental status, unspecified (principal); N39.0 Urinary tract infection, site not specified; E11.9 Type 2 diabetes mellitus without complications

== ENCOUNTER 2024-01-30 09:51 | Day surgery (SDC) | payer MEDICARE, BC ==
[~2024-01-30] VITALS: Ht 165.1 cm; Wt 72.4 kg
[~2024-01-30 09:51] MED LIST changes: +LR 1,000 ML IV SCH; +Ondansetron 4 MG/2 ML VIAL IV PRN
--- NOTE | 2024-01-30 10:28 | NUR ---
Initial visit; Patient requested Concrete Laborer visit and prayer. Concrete Laborer and patient have been acquainted for many years. Patient suffering from dementia though still has sporadic memories of people, places and times. Concrete Laborer offered prayer for a successful test and rapid and thorough recovery. Honey was happy that Concrete Laborer came to see her.
[2024-01-30] MEDS ORDERED: ABILIFY2 MG PO (11:52)
[2024-01-30] MEDS ORDERED: TYLENOL 500MG500 MG PO (11:53)
[2024-01-30] MEDS ORDERED: TYLENOL 325MG325 MG PO (11:54)
[2024-01-30 11:55] VITALS: BP 116/61; PULSE 76; TEMP 97.1
[2024-01-30] MEDS ORDERED: PROAIR HFA0.09 MG/AC IH (11:55)
[2024-01-30] MEDS ORDERED: NATURE'S BLE1000 MCG PO (11:56)
[2024-01-30] MEDS ORDERED: DULCOLAX TAB5 MG PO (11:57)
[2024-01-30] MEDS ORDERED: GOOD NEIGHBOR5.8 MG MM (11:58)
[2024-01-30] MEDS ORDERED: B-12 500 MCG PO (11:59)
[2024-01-30] MEDS ORDERED: TUSSIN DM CLEA120 ML PO (12:03)
[2024-01-30] MEDS ORDERED: LASIX 40MG TABL40 MG PO (12:04)
[2024-01-30] MEDS ORDERED: ATIVAN 0.50.5 MG/TAB PO (12:05)
[2024-01-30] MEDS ORDERED: MIRALAX PA17 GM/Dose PO (12:06)
[2024-01-30] MEDS ORDERED: MELATIN 3 MG-11 TAB PO (12:06)
[2024-01-30] MEDS ORDERED: PEPCID 20MG TAB20 MG PO (12:07)
[2024-01-30] MEDS ORDERED: K-TAB10 PO (12:08)
[2024-01-30] MEDS ORDERED: CRESTOR40 MG PO (12:09)
[2024-01-30] MEDS ORDERED: ZOLOFT 100MG100 MG PO (12:09)
[2024-01-30 12:10] VITALS: BP 104/61; PULSE 76
[2024-01-30] MEDS ORDERED: SYSTANE 0.4%-0.1 SOL OU (12:10)
[2024-01-30] MEDS ORDERED: VICTORS1 LO2 TOP (12:11)
[2024-01-30 12:25] VITALS: BP 126/68; PULSE 76
--- NOTE | 2024-01-30 12:40 | NUR ---
1155 RETURNS TO ROOM 2 PER CART. PATIENT WILL REMAIN ON CART SECONDARY TO DECREASED MOBILITY. AWAKE, ALERT, COOPERATIVE. RESP UNLABORED. DENIES NAUSEA, ABD/CHEST PAIN OR DYSPHAGIA. VITAL SIGNS OBTAINED. HOB ELEVATED 50 DEGREES. CALL LIGHT AT SIDE. DAUGHTER HERE 1210 AWAKE, ALERT. CONVERSES APPROPRIATELY. HOB ELEVATED 75 DEGREES. TOLERATES PO WATER AND ICECREAM WITHOUT NAUSEA. SWALLOWS WITHOUT DIFFICULTY 1214 DR COLLINS HERE TO VISIT WITH PATIENT 1216 DISCHARGE INSTRUCTIONS REVIEWED. PATIENT AND DAUGHTER VERBALIZE UNDERSTANDING. COPY PROVIDED IN DISCHARGE FOLDER 1230 TRANSFERS FROM CART TO BEDSIDE COMMODE WITH 2 ASSIST. PATIENT DRESSES WITH ASSIST FROM DAUGHTER AND GRANDDAUGHTER.
== END 2024-01-30 12:40 | disposition home or self-care (01) ==
LOC: SDCO 09:51
DX: D12.3 Benign neoplasm of transverse colon (principal); K21.00 Gastro-esophageal reflux disease with esophagitis, without bleeding; K29.30 Chronic superficial gastritis without bleeding; K57.30 Diverticulosis of large intestine without perforation or abscess without bleeding; K59.04 Chronic idiopathic constipation; K62.5 Hemorrhage of anus and rectum; D50.9 Iron deficiency anemia, unspecified; E11.22 Type 2 diabetes mellitus with diabetic chronic kidney disease; N18.32 Chronic kidney disease, stage 3b; Z95.5 Presence of coronary angioplasty implant and graft; Z87.19 Personal history of other diseases of the digestive system; Z86.73 Personal history of transient ischemic attack (TIA), and cerebral infarction without residual deficits; Z79.84 Long term (current) use of oral hypoglycemic drugs; Z79.899 Other long term (current) drug therapy; Z95.1 Presence of aortocoronary bypass graft; Z79.82 Long term (current) use of aspirin; Z87.891 Personal history of nicotine dependence
CPT/HCPCS: J2704; J7120

== ENCOUNTER 2024-02-03 09:33 | Emergency (ER) | payer MEDICARE, BC ==
[~2024-02-03] VITALS: Ht 167.6 cm; Wt 71.5 kg
[~2024-02-03 09:33] MED LIST changes: +ABILIFY2 MG PO; +ATIVAN 0.50.5 MG/TAB PO; +B-12 500 MCG PO; +DULCOLAX TAB5 MG PO; +GOOD NEIGHBOR5.8 MG MM; +K-TAB10 PO; -LR 1,000 ML IV SCH; +MELATIN 3 MG-11 TAB PO; +MIRALAX PA17 GM/Dose PO; +NATURE'S BLE1000 MCG PO; -Ondansetron 4 MG/2 ML VIAL IV PRN; +PEPCID 20MG TAB20 MG PO; +PROAIR HFA0.09 MG/AC IH; +SYSTANE 0.4%-0.1 SOL OU; +TUSSIN DM CLEA120 ML PO; +TYLENOL 325MG325 MG PO; +TYLENOL 500MG500 MG PO; +VICTORS1 LO2 TOP; +ZOLOFT 100MG100 MG PO
[2024-02-03 09:37] VITALS: TEMP 98
[2024-02-03] MEDS ORDERED: Haloperidol Lactate 5 MG/ML VIAL IM PRN (10:15)
[2024-02-03 10:31] LABS: COLLECTION METHOD CLEAN CATCH
[2024-02-03 10:34] LABS: BASO # 0.1 K/mm3 (0.0-0.2); EOS # 0.1 K/mm3 (0.0-0.7); GRAN # 3.1 K/mm3 (1.4-6.5); GRAN % 61.3 % (42.2-75.2); HEMATOCRIT 39.2 % (37.0-47.0); HEMOGLOBIN 12.2 g/dl (12.5-16.0); LYMPH # 1.4 K/mm3 (1.2-3.4); LYMPH % 28.2 % (20.0-51.0); MEAN CELL VOLUME 89 fl (80.0-100.0); MEAN CORPUSCULAR HEMOGLOBIN 28 pg (27-31); MEAN CORPUSCULAR HGB CONC 31 g/dl (33.0-37.0); MEAN PLATELET VOLUME 10.1 fl (7.4-10.4); MONO # 0.4 K/mm3 (0.1-0.6); MONO % 7.1 % (1.7-9.3); PLATELET COUNT 237 K/mm3 (130-400); RED BLOOD COUNT 4.39 M/mm3 (4.10-5.30); REDCELL DISTRIBUTION WIDTH-CV 15.7 % (11.5-14.5)
[2024-02-03 10:43] LABS: PH 5.5 (5.0-8.5); URINE APPEARANCE CLEAR (CLEAR/HAZY); URINE BLOOD NEGATIVE (NEGATIVE); URINE COLOR YELLOW (YELLOW); URINE GLUCOSE NEGATIVE (NEGATIVE); URINE KETONE NEGATIVE (NEGATIVE); URINE NITRATE NEGATIVE (NEGATIVE); URINE PROTEIN(semi-quant) NEGATIVE (NEGATIVE); URINE UROBILINOGEN 0.2 E.U/dL (0.2-1.0)
[2024-02-03] MEDS ORDERED: OLANZapine 5 MG Orally-Disinteg TAB PO ONE (10:45)
[2024-02-03 11:08] LABS: ALBUMIN 3.6 g/dL (3.4-4.8); BILIRUBIN,TOTAL 0.5 mg/dL (0.2-1.2); CALCIUM 9.4 mg/dL (8.4-10.2); CREATININE, serum 1.03 mg/dL (0.57-1.11); POTASSIUM 3.7 mEq/L (3.5-4.5); TOTAL PROTEIN 7.3 g/dl (6.2-8.1)
[2024-02-03] MEDS ORDERED: ZYPREXA 5MG5 MG PO (13:53)
[2024-02-03 15:05] VITALS: BP 128/71; PULSE 60
== END 2024-02-03 15:05 | disposition home or self-care (01) ==
LOC: COL.ER 09:33
PROVIDERS: Personal Emergency Response Attendant
DX: F29 Unspecified psychosis not due to a substance or known physiological condition (principal); F03.90 Unspecified dementia, unspecified severity, without behavioral disturbance, psychotic disturbance, mood disturbance, and anxiety

== ENCOUNTER 2024-03-13 17:10 | Inpatient (IN) | payer MEDICARE, BC ==
[2008-08-19 14:57] VITALS: BP 109/77
[~2024-03-13] VITALS: Ht 167.6 cm; Wt 71.5 kg
[~2024-03-13 17:10] MED LIST changes: +ZYPREXA 5MG5 MG PO
[2024-03-13] MEDS ORDERED: Albuterol 0.083% Neb Soln 2.5 MG/3 ML UD IH ONE (17:25)
[2024-03-13] MEDS ORDERED: Albuterol 0.083% Neb Soln 2.5 MG/3 ML UD IH SCH (17:28)
[2024-03-13] MEDS ORDERED: HALDOL 1MG T1 MG/TAB PO (17:30)
[2024-03-13] MEDS ORDERED: PROTONIX 40MG T40 MG PO (17:30)
[2024-03-13] MEDS ORDERED: SENNA-S 50 MG-81 TAB PO (17:30)
[2024-03-13] MEDS ORDERED: VITRON-C PO (17:31)
[2024-03-13] MEDS ORDERED: COGENTIN .0.5 MG/TAB PO (17:31)
[2024-03-13] MEDS ORDERED: JUVEN1 PDR PO (17:31)
[2024-03-13] MEDS ORDERED: NYSTATIN100000 U/1 TOP (17:33)
[2024-03-13 17:50] LABS: BASO % 0.2 % (0.0-2.0); EOS % 0.1 % (0.0-4.0); GRAN # 9.7 K/mm3 (1.4-6.5); GRAN % 83.4 % (42.2-75.2); LYMPH # 1.3 K/mm3 (1.2-3.4); LYMPH % 10.7 % (20.0-51.0); MEAN CELL VOLUME 90 fl (80.0-100.0); MEAN CORPUSCULAR HGB CONC 31 g/dl (33.0-37.0); MEAN PLATELET VOLUME 10.3 fl (7.4-10.4); MONO # 0.6 K/mm3 (0.1-0.6); MONO % 5.1 % (1.7-9.3); PLATELET COUNT 360 K/mm3 (130-400); RED BLOOD COUNT 3.11 M/mm3 (4.10-5.30); REDCELL DISTRIBUTION WIDTH-CV 16.8 % (11.5-14.5)
[2024-03-13 17:56] LABS: HEMATOCRIT 28.1 % (37.0-47.0); HEMOGLOBIN 8.8 g/dl (12.5-16.0); MEAN CORPUSCULAR HEMOGLOBIN 28 pg (27-31)
[2024-03-13 18:07] LABS: ALBUMIN 2.1 g/dL (3.4-4.8); BILIRUBIN,TOTAL 0.7 mg/dL (0.2-1.2); C-REACTIVE PROTEIN 24.26 mg/dL (0.00-0.50); CALCIUM 9.1 mg/dL (8.4-10.2); CREATININE, serum 0.78 mg/dL (0.57-1.11); POTASSIUM 4.3 mEq/L (3.5-4.5); TOTAL PROTEIN 5.8 g/dl (6.2-8.1)
[2024-03-13 18:13] LABS: TROPONIN-I 0.025 ng/mL (0.00-0.033)
[2024-03-13] MEDS ORDERED: methylPREDNISolone Sod Succ 125 MG/2 ML VIAL IV ONE (18:15)
[2024-03-13 18:55] LABS: TSH w REFLEX 1.56 uIU/mL (0.350-4.940)
[2024-03-13] MEDS ORDERED: Amiodarone 200 MG TAB PO SCH (21:00)
[2024-03-13 22:15] VITALS: BP_SYST 122
[2024-03-13] MEDS ORDERED: Furosemide 40 MG/4 ML VIAL IV SCH (22:27)
[2024-03-13] MEDS ORDERED: Albuterol/Ipratropium 3 MG-0.5 MG/3 ML Neb Soln IH PRN (22:30)
--- NOTE | 2024-03-13 22:52 | NUR ---
PT PLACED ON AIRVO AT 2225 S/P LACK OF IMPROVEMENT ON 15L OXYMASK AND 1X DUONEB TX. PT SPO2 IMPROVED FROM THE 80S TO 95% WITH AIRVO. AIRVO SETTINGS ADJUSTED TO 45L/ 70% TO MAINTAIN SPO2 >92%.PT REPORTS FEELING BETTER WITH THE AIRVO IN NARES. WILL CONTINUE TO MONITOR
[2024-03-13 23:43] VITALS: BP 110/54; PULSE 58; TEMP 98.3
[2024-03-14] VITALS (12 sets, daily range): BP systolic 110–161; BP diastolic 64–84; PULSE 48–80; TEMP 97.3–99.1
[2024-03-14] MEDS ORDERED: methylPREDNISolone Sod Succ 40 MG/ML VIAL IV SCH (06:00)
[2024-03-14 06:31] LABS: MEAN CELL VOLUME 89 fl (80.0-100.0); MEAN CORPUSCULAR HGB CONC 32 g/dl (33.0-37.0); MEAN PLATELET VOLUME 10.3 fl (7.4-10.4); PLATELET COUNT 341 K/mm3 (130-400); RED BLOOD COUNT 3.07 M/mm3 (4.10-5.30); REDCELL DISTRIBUTION WIDTH-CV 16.7 % (11.5-14.5)
[2024-03-14 06:44] LABS: HEMATOCRIT 27.3 % (37.0-47.0); HEMOGLOBIN 8.7 g/dl (12.5-16.0); MEAN CORPUSCULAR HEMOGLOBIN 28 pg (27-31)
[2024-03-14 06:50] LABS: CALCIUM 8.7 mg/dL (8.4-10.2); CREATININE, serum 0.82 mg/dL (0.57-1.11); POTASSIUM 3.8 mEq/L (3.5-4.5)
[2024-03-14 07:58] LABS: ANISOCYTOSIS 1+; BURR CELLS 1+; LYMPHOCYTE 1 % (20.0-51.0); NEUTROPHILS 99 % (42.0-75.2); OVALOCYTES 1+; PLATELET ESTIMATE NORMAL (NORMAL)
[2024-03-14] MEDS ORDERED: Carvedilol 3.125 MG TAB PO SCH (08:00)
[2024-03-14] MEDS ORDERED: amLODIPine 5 MG TAB PO SCH (09:00)
[2024-03-14] MEDS ORDERED: Sertraline 100 MG TAB PO SCH (09:00)
[2024-03-14] MEDS ORDERED: Montelukast 10 MG TAB PO SCH (09:00)
[2024-03-14] MEDS ORDERED: Benztropine 1 MG TAB PO SCH (09:00)
[2024-03-14] MEDS ORDERED: Dextrose 50% Water 25 GM/50 ML SYRINGE IV PRN (11:00)
[2024-03-14] MEDS ORDERED: Glucagon 1 MG VIAL IM PRN (11:00)
[2024-03-14] MEDS ORDERED: Dextrose (Glucose) 15 GM (4 x 3.75 GM) Chewable TABLET PACK PO PRN (11:00)
--- NOTE | 2024-03-14 11:03 | NUR ---
Patient awake, alert, confused. Family at the bedside. Bed in lowest position with call light within reach. Short of breath at rest, airvo in place. External cath in place, diuresing. Denies pain or nausea.
[2024-03-14] MEDS ORDERED: Insulin Lispro (HumaLOG) SQ SCH (12:00)
[2024-03-14] MEDS ORDERED: Acetaminophen 325 MG TAB PO PRN (12:00)
--- NOTE | 2024-03-14 13:58 | NUR ---
SW met with patient, daughter and family were present and permitted to assist with intake assessment and discharge planning discussion. Patient currently lives at [facility], pharmacy of choice is [facility] in [place]. Patient has DPOA on file, Queta Patel (daughter) confirmed [phone]. PCP is CASIMIRO Johnson. ADLs are assisted and current DMEs reported wheelchair. Patient is anticipating returning back to [facility], pending further medical recommendations at this time.
[2024-03-14] MEDS ORDERED: Haloperidol 1 MG TAB PO SCH (21:00)
[2024-03-14] MEDS ORDERED: Atorvastatin 80 MG TAB PO SCH (21:00)
[2024-03-14] MEDS ORDERED: Rosuvastatin 40 MG **** subs to Atorvastatin 80 MG PO SCH (21:00)
[2024-03-15] VITALS (12 sets, daily range): BP systolic 115–135; BP diastolic 57–80; PULSE 50–64; TEMP 97.4–98.4
[2024-03-15 07:56] LABS: MEAN CELL VOLUME 89 fl (80.0-100.0); MEAN CORPUSCULAR HGB CONC 31 g/dl (33.0-37.0); MEAN PLATELET VOLUME 10.5 fl (7.4-10.4); PLATELET COUNT 398 K/mm3 (130-400); RED BLOOD COUNT 3.22 M/mm3 (4.10-5.30); REDCELL DISTRIBUTION WIDTH-CV 16.8 % (11.5-14.5)
[2024-03-15 07:58] LABS: HEMATOCRIT 28.7 % (37.0-47.0); HEMOGLOBIN 8.9 g/dl (12.5-16.0); MEAN CORPUSCULAR HEMOGLOBIN 28 pg (27-31)
[2024-03-15 08:12] LABS: CREATININE, serum 0.85 mg/dL (0.57-1.11); POTASSIUM 3.1 mEq/L (3.5-4.5)
[2024-03-15 08:46] LABS: ARTERIAL BLD GAS O2 SATURATION 87.1 % (92-100); ARTERIAL BLD GAS TCO2 CT 25.9; ARTERIAL BLOOD GAS BASE EXCESS 1.4 (-2-2); ARTERIAL BLOOD GAS HCO3 24.9 meq/L (22-26); ARTERIAL BLOOD GAS PCO2 34.7 mmHg (35-45); ARTERIAL BLOOD GAS PO2 54.2 mmHg (80-100); ARTERIAL BLOOD GAS pH 7.47 (7.35-7.45)
[2024-03-15 08:59] LABS: ANISOCYTOSIS 1+; LYMPHOCYTE 4 % (20.0-51.0); NEUTROPHILS 93 % (42.0-75.2); PLATELET ESTIMATE NORMAL (NORMAL); SCHISTOCYTES 1+; TEAR DROP CELLS 1+
--- NOTE | 2024-03-15 09:55 | NUR ---
Initial visit; Renita seems to 'come and go' with her memory and mentioned a couple things she had done that I know she was not able to do. Optical Goods Drilling Machine Operator listened, talked about when they knew eachother and offered prayer for her.
[2024-03-15] MEDS ORDERED: MIRALAX PA17 GM/Dose PO (11:04)
[2024-03-15] MEDS ORDERED: Iohexol 300 - 100 ML VIAL IV ONE (11:20)
--- NOTE | 2024-03-15 11:21 | NUR ---
Patient down to CT - transitioned to nonrebreather mask for transport. Pt awake, alert, pleasantly confused. Family at the bedside. Dyspnea upon exertion, while sitting on the side of the bed with PT, pt desats down to 83%. Tolerating food and PO medications, small amount of breakfast eaten. Bed in lowest position with call light within reach, bed alarm on.
[2024-03-15] MEDS ORDERED: Potassium Bicarbonate/Citrate 20 MEQ Effervescent TAB PO SCH (11:30)
[2024-03-15] MEDS ORDERED: *Potassium Replacement Protocol MC SCH (11:30)
[2024-03-15] MEDS ORDERED: Furosemide 100 MG in NS 100 ML IV SCH (13:30)
--- NOTE | 2024-03-15 13:44 | NUR ---
Take Out Waiter/Waitress met with patient's daughter, Queta and granddaughter, Mis at bedside to check in. Patient currently on high flow oxygen. SW faxed clinical updates to [facility]. Discharge Plan: [facility]
--- NOTE | 2024-03-15 15:42 | NUR ---
Shah catheter inserted, clear yellow urine draining. IV lasix gtt in place. Started on the bipap, pt calm and resting, tolerating so far. Family at the bedside.
--- NOTE | 2024-03-15 17:32 | NUR ---
PATIENT ON BREAK FROM BIPAP MASK, ON 15L HIGH FLOW NASAL CANULA,, SPO2 84-87%. WITH OXYMASK SPO2 83% AT 15LPM. WII PLACE BACK ON BIPAP BEFORE I LEAVE THE FLOOR. BIPAP OF 14/8, FIO2 65% GIVES SPO2 OF 93% AND TIDAL VOLUMES OF 450-600.
[2024-03-15 22:21] LABS: TRANSFERRIN 145 mg/dL (173-360)
[2024-03-16] VITALS (8 sets, daily range): BP systolic 55–135; BP diastolic 55–74; PULSE 51–93; TEMP 97.1–98.1
[2024-03-16 00:39] LABS: HAPTOGLOBIN 328 mg/dL (63-273)
--- NOTE | 2024-03-16 00:51 | NUR ---
CALL PLACED TO RT, PATIENT RIPPED BIPAP OFF AND IS COMBATIVE. HIGH FLOW NS AT 11L PLACED AND PATIENT SATING AT 91%. RT BEDSIDE TO ASSESS. RT ALLOWING HIGH FLOW NC FOR NOW. PATIENT RESTING, NO LONGER COMBATIVE.
--- NOTE | 2024-03-16 00:58 | NUR ---
RT INFORMED BY RN THAT PT RIPPED BIPAP MASK OFF. PT REFUSING TO WEAR BIPAP STATING SHE CAN'T MOVE OR LAY ON HER SIDE WITH IT ON. PT SATTING 90-91% ON 10 HFNC. RN AND DAUGHTER AT BEDSIDE.
--- NOTE | 2024-03-16 03:03 | NUR ---
PATIENT DESATED TO 70% WHILE PERFORMING LINEN CHANGE. PLACED PATIENT BACK ON BIPAP AND CALLED RT. RT AT BEDSIDE ASSESSING. PATIENT SAT NOW 92% ON BIPAP.
[2024-03-16 03:13] LABS: COLLECTION METHOD CLEAN CATCH
[2024-03-16 03:21] LABS: URINE APPEARANCE CLEAR (CLEAR/HAZY); URINE BLOOD 3+ (NEGATIVE); URINE COLOR YELLOW (YELLOW); URINE GLUCOSE NEGATIVE (NEGATIVE); URINE KETONE NEGATIVE (NEGATIVE); URINE NITRATE NEGATIVE (NEGATIVE); URINE PROTEIN(semi-quant) NEGATIVE (NEGATIVE); URINE UROBILINOGEN 0.2 E.U/dL (0.2-1.0)
--- NOTE | 2024-03-16 03:56 | NUR ---
RT INFORMED BY RN THAT PT DESATTED TO THE 70S. PT BACK ON BIPAP. EPAP INCREASED TO 10 AND FIO2 INCREASED TO 85% TO MAINTAIN SATURATIONS > 92%. CHANGES MADE AT 0258. RT BACK IN PT'S ROOM AT 0345. PT ONLY SATTING 93% ON FIO2 OF 85%, PT AND DAUGHTER BOTH SLEEPING.
--- NOTE | 2024-03-16 04:14 | NUR ---
PATIENT RIPPED BIPAP OFF AND DESTAED TO 84%. THERAPEUTIC COMMUNICATION USED AND PATIENT AGREEABLE TO REAPPLY BIPAP-SAT 94% CURRENTLY.
--- NOTE | 2024-03-16 05:00 | NUR ---
RT NOTIFIED BY RN AT 0459 THAT PT IS, AGAIN, RIPPING OFF BIPAP MASK AND REFUSING TO WEAR THE BIPAP. RN SWITCHED PT TO HFNC.
--- NOTE | 2024-03-16 05:26 | NUR ---
RT IN ROOM AT 0518. PT ON 11L HFNC, ONLY SATTING HIGH 60'S. O2 INCREASED TO 15L WITH LITTLE IMPROVEMENT. PT ENCOURAGED TO WEAR BIPAP, DAUGHTER STATES TO THE PT "PT WILL " IF SHE DOESN'T WEAR THE MASK. PT STATES SHE WANTS TO LIVE BUT "NOT LIKE THIS". PT'S DAUGHTER ABLE TO CONVINCE PT TO WEAR BIPAP. O2 INCREASED TO 100%. ABLE TO WEAN BACK DOWN TO 85%. PER CHARTING. PT NOW SATTING 94%.
--- NOTE | 2024-03-16 05:28 | NUR ---
CALL PLACED TO HOSPITALISTCHRISTIAN. PATIENT NOT AGREEABLE TO REAPPLING BIPAP, HOWEVER, PATIENT DESATING TO 70% ON HIGH FLOW NC. PATIENT IRATE AND USING PROFANITY. TORB FOR 0.5 MG IV ATIVAN NOW GIVEN.
[2024-03-16] MEDS ORDERED: LORazepam 2 MG/ML 1 ML VIAL IV ONE (05:30)
[2024-03-16 06:28] LABS: MEAN CELL VOLUME 88 fl (80.0-100.0); MEAN CORPUSCULAR HGB CONC 32 g/dl (33.0-37.0); MEAN PLATELET VOLUME 10.3 fl (7.4-10.4); PLATELET COUNT 445 K/mm3 (130-400); RED BLOOD COUNT 3.51 M/mm3 (4.10-5.30); REDCELL DISTRIBUTION WIDTH-CV 16.9 % (11.5-14.5)
[2024-03-16 06:35] LABS: HEMATOCRIT 30.7 % (37.0-47.0); HEMOGLOBIN 9.8 g/dl (12.5-16.0); MEAN CORPUSCULAR HEMOGLOBIN 28 pg (27-31)
[2024-03-16 06:48] LABS: CREATININE, serum 0.89 mg/dL (0.57-1.11); POTASSIUM 3.2 mEq/L (3.5-4.5)
[2024-03-16 06:56] LABS: CALCIUM 9.3 mg/dL (8.4-10.2)
[2024-03-16 07:10] LABS: BAND 4 % (0-10); LYMPHOCYTE 2 % (20.0-51.0); NEUTROPHILS 91 % (42.0-75.2)
[2024-03-16 07:11] LABS: OVALOCYTES 1+; PLATELET ESTIMATE INCREASED (NORMAL)
--- NOTE | 2024-03-16 07:55 | NUR ---
LATE NOTE, SET UP PATIENT ON NON REBREATHER TO GO TO CT, RETURED WITHOUT INCIDENT.
[2024-03-16] MEDS ORDERED: dexAMETHasone 10 MG/ML VIAL IV SCH (09:05)
--- NOTE | 2024-03-16 09:29 | NUR ---
REVIEWED WITH PATIENT FAMILY TO KEEP DOOR OPEN SO ALARMS CAN BE HEARD BY NURSING STAFF.
--- NOTE | 2024-03-16 11:00 | NUR ---
THIS RN, SPEECH THERAPY AND RESPIRATORY THERAPY AT PATIENT BEDSIDE FOR SWALLOW EVAL. PATIENTS BIPAP WAS REMOVED BY RT, AND SHE WAS PLACED ON 15LHFNC. PATIENTS O2 DESATURATED TO 81%. PATIENT WAS ABLE TO TAKE HER MEDS WHOLE WITH A DRINK OF WATER, ONE AT A TIME. PATIENT BECAME TIRED FROM THIS. SHE WAS PLACED BACK ON BIPAP BUY RT. LOWEST O2 READING DURING WAS 79%. PATIENTS DAUGHTET AT BEDSIDE. PER ST PATIENT TO REMAIN NPO BESIDES SIPS OF WATER WITH MEDS.
--- NOTE | 2024-03-16 11:00 | NUR ---
Pt remains calm for head to toe assessment. Pt states she wants bipap off. Education was made about keeping it on for her safety. Pt remains calm and is resting in bed with family present. macey FLETCHER
--- NOTE | 2024-03-16 11:01 | NUR ---
Clinical Nurse Reviewer faxed clinical updates to [facility].
--- NOTE | 2024-03-16 11:16 | NUR ---
REMOVED BIPAP MASK FOR 15 MIN WHILE SPEECH AND NURSING GAVE PATIENT PILLS. PATIENT WAS ON 15LPM HIGH FLOW NC, SPO2 DROPPED TO 78-82%, PATIENT DID NOT APPEAR SOB. BACK ON BIPAP ATT. PATIENT DOING WELL.
--- NOTE | 2024-03-16 13:07 | NUR ---
VOICEMAIL LEFT TO MD FOR CALL BACK
--- NOTE | 2024-03-16 13:52 | NUR ---
CHANGED EPAP FROM 10 TO 8, MASK LEAK IS NOW IN TOLERABLE RANGE. DR. HINDS AGREES.
--- NOTE | 2024-03-16 14:24 | NUR ---
ATTEMPTED TO CALL REPORT TO [facility] TWICE. FIRST TIME LAB AID ANSWERED CALL., TRASNFERED THIS RN, THEN THE OTHERLINE HUN UP. CALLED BACK, PHONE STATED IT IS UNABLE TO ACCEPT MY CALL AND TO CALL BACK.
--- NOTE | 2024-03-16 15:44 | NUR ---
JONNIE was asked to assist with pt transfer via EMS to [facility] by Nuclear Waste Process Operator. JONNIE completed EMS forms and provided them to RN. Electrical Line Splicer Caroline verified this was accurately completed. JONNIE could not set up transport with [facility] or [facility], so [facility] was used and can arrive in 90 minutes (3:38pm discussion occurred.) JONNIE attempted to infrom HS who did not answer. JONNIE informed ANIL Carranza of established time. JONNIE called [facility] and provided update to Cristina about pt transfer. Discharge Plan: [facility]
--- NOTE | 2024-03-16 17:57 | NUR ---
YOGESH LEFT WITH EMS TO [place]. PATIENT LEFT AWAKE AND ALERT,VSS. PATIENTS FAMILY TOOK HER BELONGINGS. REPORT GIVEN TO ICU NURSE AMADA
== END 2024-03-16 17:58 | disposition short-term general hospital (02) | DRG 291 ==
LOC: COL.ER 17:10 → MEDICAL 19:27
PROVIDERS: Emergency Medicine; Hospitalist; Physician Assistant; ADMIT Internal Medicine
DX: I11.0 Hypertensive heart disease with heart failure (principal); I50.33 Acute on chronic diastolic (congestive) heart failure; J96.01 Acute respiratory failure with hypoxia; L89.623 Pressure ulcer of left heel, stage 3; J45.909 Unspecified asthma, uncomplicated; I73.9 Peripheral vascular disease, unspecified; E11.9 Type 2 diabetes mellitus without complications; D64.9 Anemia, unspecified; E87.6 Hypokalemia; Z20.822 Contact with and (suspected) exposure to COVID-19; F03.90 Unspecified dementia, unspecified severity, without behavioral disturbance, psychotic disturbance, mood disturbance, and anxiety; Z86.79 Personal history of other diseases of the circulatory system; Z95.5 Presence of coronary angioplasty implant and graft; Z90.710 Acquired absence of both cervix and uterus; Z86.73 Personal history of transient ischemic attack (TIA), and cerebral infarction without residual deficits; Z87.891 Personal history of nicotine dependence; Z88.1 Allergy status to other antibiotic agents; Z99.89 Dependence on other enabling machines and devices
CPT/HCPCS: A4314; J1100; J1650; J1940; J2060; J2543; J2919; Q9967